=== PATIENT | male | born 1960 | race Caucasian/White ===

== ENCOUNTER → 2019-01-14 | Day surgery (SDC) | payer OTHER ==
[2019-01-12 10:42] LABS: BASOPHILS # (AUTO) 0.1 (0.0-0.1); BASOPHILS % 1.1 % (0.0-1.0); EOSINOPHILS # (AUTO) 0.2 (0.0-0.4); HEMATOCRIT 46.6 % (38.2-49.6); HEMOGLOBIN 16.2 g/dL (14.0-18.0); LYMPHOCYTES # (AUTO) 1.5 (1.0-3.2); LYMPHOCYTES % 27.9 % (18.0-39.1); MEAN CORPUSCULAR HGB CONC 34.8 g/dL (31-35); MEAN CORPUSCULAR VOLUME 92.1 fL (81-99); MONOCYTES # (AUTO) 0.7 (0.2-0.8); NEUTROPHILS % 55.8 % (38.7-80.0); PLATELET COUNT 228 x10e3/uL (140-360); RED BLOOD COUNT 5.06 x10e6/uL (4.3-5.7); RED CELL DISTRIBUTION WIDTH 12.8 % (11.7-14.4)
[2019-01-12 11:36] LABS: ANION GAP 12.5 mmol/L (8-16); BLOOD UREA NITROGEN 18 mg/dL (7-26); BUN/CREATININE RATIO 16 (6-25); CALCIUM 9.9 mg/dL (8.4-10.2); CARBON DIOXIDE 28 mmol/L (22-29); CHLORIDE 102 mmol/L (98-107); CREATININE, SERUM 1.11 mg/dL (0.72-1.25); EST GLOMERULAR FILTRATION RATE > 60 ML/MIN (60-); GLUCOSE 91 mg/dL (74-118); POTASSIUM 4.5 mmol/L (3.5-5.1); SODIUM 138 mmol/L (136-145)
[~2019-01-14] MED LIST: BUPIVACAINE 0.25%/EPI 30ML SDV INJ ONE; FENTANYL CITRATE/PF 100MCG/2 ML INJ ONE; HYDROCODONE/APAP 7.5MG-325MG 1 EA TAB ONE; LIDOCAINE HCL 1% LOCAL INJ 20 ML VIAL ONE; LIDOCAINE HCL 2% LOCAL INJ 5 ML SDV VIAL INJ ONE; MIDAZOLAM HCL 2 MG/2 ML VIAL ONE; PROPOFOL IV EMULSION 10 MG/ML 20 ML VIAL ONE
--- OUTSIDE RECORDS SUMMARY | 2019-01-14 11:17 | XMS REPORT | Clinical Summary ---
Author Author [facility] Organization [facility] Address Unknown Phone Unavailable Care Team Providers Care Physician Office Nurse Name Role Phone Luis Graves MD PCP Allergies No Known Allergies Medications End Date Status Medication Sig Dispensed Refills Start Date 02/02/2018 doxycycline (VIBRAMYCIN) Take 1 28 capsule 0 100 MG capsule (100 8 capsuleIndications: mg total) by Urethritis, nonspecific mouth 2 (two) times a day for 14 days. Status Hospital, Clinic, or Ordered Dose Route Frequency Start End Date Other Facility Date Administered Medication Active azithromycin (ZITHROMAX) 1000 mg oral once 01/20/20 tablet 1,000 18 8 mgIndications: Urethritis, nonspecific Ended cefTRIAXone (ROCEPHIN) 1 g IM once 01/20/20 injection 1 gIndications: 18 8 Urethritis, nonspecific Active Problems Problem Noted Date Urethritis, nonspecific 01/19/2018 Abnormal liver function test 07/02/2017 Encounters Care Team Description Date Type Specialty Luis Graves MD Urethritis, nonspecific (Primary Dx); Hypospadias in male 01/19/2018 Office Visit Family Medicine Luis Graves MD 01/19/2018 Orders Only Family Medicine after 01/13/2018 Immunizations Name Dates Previously Given Next Due FLUZONE HIGH-DOSE PF 05/26/2017 Family History Medical History Relation Name Comments Heart attack Mother Relation Name Status Comments Father Mother Alive Social History Date Tobacco Use Types Packs/Day Years Used Never Smoker Smokeless Tobacco: Never Used Alcohol Use Drinks/Week oz/Week Comments No Sex Assigned at Date Recorded Not on file Industry Job Start Date Occupation Not on file Not on file Not on file Travel End Travel History Travel Start No recent travel history available. Last Filed Vital Signs Time Taken Vital Sign Reading 01/19/2018 4:31 PM CDT Blood Pressure 163/103 01/19/2018 4:31 PM CDT Pulse 69 01/19/2018 4:31 PM CDT Temperature 36.7 C (98.1 F) - Respiratory Rate - 01/19/2018 4:31 PM CDT Oxygen Saturation 97% - Inhaled Oxygen - Concentration 01/19/2018 4:31 PM CDT Weight 97.5 kg (215 lb) 01/19/2018 4:31 PM CDT Height 180.3 cm (5' 11") 01/19/2018 4:31 PM CDT Body Mass Index 29.99 Plan of Treatment Health Maintenance Due Date Last Done Comments COLONOSCOPY SCREENING 2008 SHINGLES VACCINES (#1) 2008 INFLUENZA VACCINE 02/24/2019 05/26/2017 Procedures Comments Procedure Name Priority Date/Time Associated Diagnosis CHLAMYDIA/N. GONORRHOEAE Routine 01/19/2018 RNA, TMA 4:53 PM CDT after 01/13/2018 Results * CHLAMYDIA/N. GONORRHOEAE RNA, TMA (01/19/2018 4:53 PM CDT) Chlamydia NOT DETECTED NOT DETECTED [employer] [facility] DIAGNOSTICS RNA, TMA [place] Neisseria DETECTED (A) NOT DETECTED [facility] gonorrhoeae Comment: DIAGNOSTICS RNA, TMA A positive CT or NG Nucleic REGALADO Acid Amplification Test (NAAT) result should be interpreted in conjunction with other laboratory and clinical data available to the clinician. If clinically indicated, further testing can be performed on the same sample using an alternate molecular target. To order alternate target test use 13937 (C. trachomatis) or 43222 (N. gonorrhoeae). (Always Comment: [facility] message) This test was performed using [employer] the APTIMA COMBO2 Assay [place] ([employer] The analytical performance characteristics of this assay, when used to test SurePath specimens have been determined by [employer] [facility]. Specimen Narrative Performed At [facility]: UNKNOWN [facility] Resulting Agency Comment Performing Organization Information: Site ID: [id number] Address: [address] [place] [address] Director: Jamee Larry Performing Organization Address City/State/Zipcode Phone Number [employer] [address] [address] after 01/13/2018 Insurance Type Payer Benefit Subscriber ID Effective Phone Address Plan / Dates Group HMO CIGNA CIGNA OPEN xxxxxxxxxxx [id number] ACCESS/NET resent WORK Advance Directives Patient has advance care planning documents on file. For more information, brendan ricci contact: Cameron Baptiste [address] [place] [address]
[2019-01-14 14:23] VITALS: BP 127/82
--- NOTE | 2019-01-14 15:14 | Operative Report ---
DATE OF PROCEDURE: 01/14/2019 SURGEON: Angel Basurto MD PREOPERATIVE DIAGNOSIS: Right inguinal hernia. POSTOPERATIVE DIAGNOSIS: Right inguinal hernia. OPERATION PERFORMED: Repair of right inguinal hernia with extended Prolene hernia system. CHIP FRIER: RAHUL Bonds. ANESTHESIA: Local with 1% Xylocaine and 0.25% Marcaine and MAC. COMPLICATIONS: None. ESTIMATED BLOOD LOSS: Minimal. PROCEDURE IN DETAIL: With the patient lying in bed in the supine position under good IV sedation, the lower abdomen was prepped with Betadine solution and draped in the usual manner. A standard field block was then performed in the right groin using 0.25% Marcaine and 1% Xylocaine mixed in equal parts. A right inguinal incision was made. It was carried down through the subcutaneous tissue down to the external oblique aponeurosis. External oblique was then opened along the length of its fibers and the external inguinal ring was opened. The cord was then mobilized and retracted. Exploration of the cord revealed the presence of a lipoma of the cord which was from the cord structures, ligated with 2-0 Vicryl and divided. Contained within the cord was also an indirect hernia sac, which was from the cord structures and ligated with a pursestring suture of 2-0 silk, the excess was resected. The preperitoneal space was then entered and a pocket was created without any difficulty. After this was done, an extended Prolene hernia system was placed through the internal ring into the preperitoneal space and the underlay patch was deployed without any problems. The overlay patch was then placed over the floor and split inferolaterally to allow for passage of the cord. The mesh was then sutured to the conjoint tendon and the inguinal ligament using interrupted sutures of 2-0 Vicryl. The whole area was thoroughly irrigated. Perfect hemostasis was ascertained. The external oblique aponeurosis was then closed with a running suture of 2-0 Vicryl, the subcutaneous tissue was approximated with 3-0 plain and the skin was closed with clips. A dressing was applied. The sponge, lap, and needle count was correct. The patient tolerated the procedure well and returned to the recovery room in stable condition. MD PORSHA Alejandre/MODL /[id number]
== END | disposition home or self-care (01) ==
LOC: OR 11:14
PROVIDERS: ATTEND Surgery
DX: K40.90 Unilateral inguinal hernia, without obstruction or gangrene, not specified as recurrent (principal); D17.6 Benign lipomatous neoplasm of spermatic cord; G47.33 Obstructive sleep apnea (adult) (pediatric); R00.1 Bradycardia, unspecified; Z01.810 Encounter for preprocedural cardiovascular examination; Z01.812 Encounter for preprocedural laboratory examination; Z96.641 Presence of right artificial hip joint
CPT/HCPCS: 36415; 49505; 80048; 85025; 93005; C1781; J2001 ×2; J2250; J2704; J3010